=== PATIENT | male | born 1940 | race African-American/Black ===

== ENCOUNTER 2016-10-28 13:18 | Emergency (ER) | payer MEDICARE, BC ==
[2016-10-28 14:14] LABS: #Basophils 0.1 thou/uL (0.0-0.2); #Eosinphils 0.3 thou/uL (0.0-0.7); #Lymphocytes 0.9 thou/uL (1.20-3.40); #Monocytes 0.8 thou/uL (0.11-0.59); %Basophils 1.4 % (0.0-1.0); %Eosinophils 2.8 % (0.0-10.0); %Lymphocytes 9.8 % (21.0-51.0); Hemoglobin 9.1 g/dL (14.0-18.0); Mean Corpuscular HGB CONC 31.6 g/dL (32.0-36.0); Mean Corpuscular Hemoglobin 30.1 pg (27.0-31.0); Mean Corpuscular Volume 95.4 fl (80.0-94.0); Mean Platelet Volume 5.6 fL (7.4-10.4); Platelet Count 235 thou/uL (130-400); RBC Distribution Width 15.4 % (11.5-14.5); Red Blood Cell (RBC) Count 3.01 mill/uL (4.70-6.10); White Blood Cell (WBC) Count 9.1 thou/uL (4.8-10.8)
[2016-10-28 14:29] LABS: ALT (SGPT) 20 U/L (0-55); AST (SGOT) 30 U/L (5-34); Albumin 3.3 g/dL (3.4-4.8); Alkaline Phosphatase 66 U/L (40-150); Anion Gap 21 mmol/L (10-20); BUN (Urea Nitrogen) 61 mg/dL (8.4-25.7); Bilirubin, Total 0.5 mg/dL (0.2-1.2); CK (CPK) 924 U/L (30-200); Calc. Creatinine Clearance 0 mL/min (70-130); Calcium 9.1 mg/dL (7.8-10.44); Carbon Dioxide 23 mmol/L (23-31); Chloride 103 mmol/L (98-107); Estimated GFR-MDRD 4; Globulin 4.3 g/dL (2.4-3.5); Glucose 96 mg/dL (83-110); Protein, Total 7.6 g/dL (5.8-8.1); Sodium 142 mmol/L (136-145)
[2016-10-28 14:38] LABS: Troponin I 0.063 ng/mL (< 0.028)
[2016-10-28 14:42] LABS: CKMB 10.7 ng/mL (0-6.6)
--- NOTE | 2016-10-28 14:51 | RAD ---
PORTABLE CHEST 1 VIEW: DATE: 10/28/16. TIME: 1:58 p.m. HISTORY: Difficulty breathing. FINDINGS/IMPRESSION: Comparison is made with the exam of 10/07/14. The heart size is stable. The aorta is tortuous. No confluent areas of consolidation, pneumothorax , or large effusions are seen. There is no evidence of franny pulmonary edema. Small effusions rogelio ot be excluded. POS: [facility]
== END 2016-10-28 15:15 | disposition short-term general hospital (02) ==
LOC: NAV ERS 13:18
DX: D64.9 Anemia, unspecified (principal); R06.00 Dyspnea, unspecified; I12.0 Hypertensive chronic kidney disease with stage 5 chronic kidney disease or end stage renal disease; N18.6 End stage renal disease; E11.9 Type 2 diabetes mellitus without complications; I25.2 Old myocardial infarction; Z79.899 Other long term (current) drug therapy
CPT/HCPCS: 71010; 80053; 82553; 83880; 84484; 85025; 93005; J7620

== ENCOUNTER 2016-11-22 21:33 | Emergency (ER) | payer MEDICARE, BC ==
[2016-11-22] MEDS ORDERED: Dextrose 5 % And 0.9 % NaCl 1,000 ML ONE (21:55)
[2016-11-22] MEDS ORDERED: Dextrose 50% Abboject 50 ML SYRINGE ONE (21:55)
[2016-11-22 22:24] LABS: ALT (SGPT) 17 U/L (8-55); AST (SGOT) 23 U/L (5-34); Albumin 3.4 g/dL (3.4-4.8); Alkaline Phosphatase 67 U/L (40-150); Anion Gap 19 mmol/L (10-20); BUN (Urea Nitrogen) 65 mg/dL (8.4-25.7); Bilirubin, Total 0.5 mg/dL (0.2-1.2); Calc. Creatinine Clearance 0 mL/min (70-130); Calcium 8.1 mg/dL (7.8-10.44); Carbon Dioxide 25 mmol/L (23-31); Chloride 100 mmol/L (98-107); Estimated GFR-MDRD 3; Globulin 3.8 g/dL (2.4-3.5); Protein, Total 7.2 g/dL (5.8-8.1); Sodium 140 mmol/L (136-145)
[2016-11-22 22:26] LABS: #Basophils 0.1 thou/uL (0.0-0.2); #Eosinphils 0.2 thou/uL (0.0-0.7); #Lymphocytes 1.3 thou/uL (1.20-3.40); #Neutrophils 5.2 thou/uL (1.40-6.50); %Basophils 1.3 % (0.0-1.0); %Eosinophils 2.5 % (0.0-10.0); %Monocytes 12.5 % (0.0-10.0); %Neutrophils 66.7 % (42.0-75.0); Hemoglobin 9.3 g/dL (14.0-18.0); Mean Corpuscular HGB CONC 31.1 g/dL (32.0-36.0); Mean Corpuscular Hemoglobin 29.5 pg (27.0-31.0); Mean Corpuscular Volume 94.5 fl (80.0-94.0); Mean Platelet Volume 6.1 fL (7.4-10.4); Platelet Count 235 thou/uL (130-400); Red Blood Cell (RBC) Count 3.15 mill/uL (4.70-6.10); White Blood Cell (WBC) Count 7.8 thou/uL (4.8-10.8)
[2016-11-22 22:27] LABS: Glucose 43 mg/dL (83-110)
== END 2016-11-22 23:10 | disposition home or self-care (01) ==
LOC: NAV ERS 21:33
DX: E11.649 Type 2 diabetes mellitus with hypoglycemia without coma (principal); I10 Essential (primary) hypertension; M10.9 Gout, unspecified; Z79.899 Other long term (current) drug therapy
CPT/HCPCS: 36416; 80053; 85025; 96374; J7042